=== PATIENT | female | born 1965 | race Caucasian/White ===

== ENCOUNTER 2021-02-27 15:46 | Outpatient (CLI) | payer BC | END 2021-02-27 15:47 | disposition home or self-care (01) | LOC: CSHMAMMO 15:46 | PROVIDERS: ATTEND Family Medicine | DX: Z12.31 Encounter for screening mammogram for malignant neoplasm of breast (principal); Z80.3 Family history of malignant neoplasm of breast | CPT/HCPCS: 77063; 77067 ==

== ENCOUNTER 2021-05-10 07:23 | Outpatient (CLI) | payer BC ==
[2021-05-10 18:46] LABS: SARS-CoV-2 PCR by NAA Not Detected (NotDetected)
== END 2021-05-10 07:24 | disposition home or self-care (01) ==
LOC: CSHLAB 07:23
PROVIDERS: ATTEND Family Medicine
DX: Z20.822 Contact with and (suspected) exposure to COVID-19 (principal)
CPT/HCPCS: U0003; U0005

== ENCOUNTER 2021-05-20 07:31 | Outpatient (CLI) | payer BC ==
[2021-05-20] MEDS ORDERED: Iopamidol 300 61% 100 ML VIAL FS ONE (13:21)
== END 2021-05-20 07:32 | disposition home or self-care (01) ==
LOC: CSHCT 07:31
PROVIDERS: ATTEND Physician Assistant Medical
DX: R10.13 Epigastric pain (principal); R11.0 Nausea; R13.12 Dysphagia, oropharyngeal phase; R19.8 Other specified symptoms and signs involving the digestive system and abdomen
CPT/HCPCS: 74177; Q9967